=== PATIENT | male | born 1960 | race Caucasian/White ===

== ENCOUNTER → 2024-01-24 10:29 | Outpatient (REF) | payer OTHER, SELFPAY ==
[2024-01-24 19:07] LABS: Hepatitis B Surface Antibody Positive
[2024-01-24 20:36] LABS: Rubella Positive
== END ==
LOC: OHS 10:29
PROVIDERS: ATTENDING PHYSICIAN Nurse Practitioner Family
DX: Z23 Encounter for immunization (principal)
CPT/HCPCS: 36415; 86480; 86706; 86735; 86762; 86765; 86787